=== PATIENT | male | born 1995 | race Caucasian/White ===

== ENCOUNTER 2017-02-24 03:42 | Emergency (ER) | payer OTHER ==
[2017-02-24 04:22] LABS: COLOR PALE YELLOW; LEUKOCYTE ESTERASE,URINE NEGATIVE (NEGATIVE); NITRITE,URINE NEGATIVE (NEGATIVE)
--- NOTE | 2017-02-24 04:27 | EDPHY ---
H & P Stated Complaint: right flank pain Time Seen by Provider: 02/24/17 04:12 HPI/ROS: Chief Complaint: Back pain HPI: 21-year-old male with a significant past medical history woke yesterday morning with pain in his right back radiating to his right groin. Patient states the pain was there for about an hour rate he has some nausea associated with. He had some intermittent pain the course of the day. He went to bed last night and awoke again this morning with severe 9/10 pain is right flank again radiating to his right groin. He could not find self a comfortable position in fact felt best when he is up walking around. Pain is now subsided down to about a 1/10. Has not noticed any blood in urine. Urgency or frequency. No fevers or chills. No central abdominal pain. No nausea or vomiting. He was taking ibuprofen yesterday with minimal relief. ROS: 10 point Review of Systems is negative except as noted in the HPI. PMH: None Social History: No smoking, no alcohol, daily marijuana Family History: non-contributory Physical Exam: Gen: Awake, Alert, No Distress HEENT: Nose: no rhinorrhea Eyes: PERRLA, EOMI Mouth: Moist mucosa Neck: Supple, no JVD Chest: nontender, lungs clear to auscultation Heart: S1, S2 normal, no murmur Abd: Soft, non-tender, no guarding Back: no CVA tenderness, no midline tenderness Ext: no edema, non-tender Skin: no rash Neuro: CN II-XII intact, Sensation grossly intact, Strength 5/5 in bilateral upper and lower extremities - Personal History Current Tetanus Diphtheria and Acellular Pertussis (TDAP): Yes - Medical/Surgical History Hx Asthma: No Hx Chronic Respiratory Disease: No Hx Diabetes: No Hx Cardiac Disease: No Hx Renal Disease: No Hx Cirrhosis: No Hx Alcoholism: No Hx HIV/AIDS: No Hx Splenectomy or Spleen Trauma: No - Social History Smoking Status: Never smoked Constitutional: Initial Vital Signs Temperature (C) 36.4 C 02/24/17 03:47 Heart Rate 74 02/24/17 03:47 Respiratory Rate 20 02/24/17 03:47 Blood Pressure 140/77 H 02/24/17 03:47 O2 Sat (%) 96 02/24/17 03:47 O2 Delivery Mode Room Air Allergies/Adverse Reactions: No Known Allergies Allergy (Unverified 02/24/17 03:47) Home Medications: Medication Instructions Recorded NK [No Known Home Meds] 02/24/17 Medical Decision Making ED Course/Re-evaluation: Urinalysis shows hematuria without pyuria. Patient's pain has improved without any treatment here. I suspect he has already passed a stone. We discussed the advantages and disadvantages of imaging specially CT scan at this time. I feel that given the fact that his pain is resolved without treatment days likely passed stone. He would like to avoid the radiation of a CT scan is not going to change anything and I think that this is appropriate. Will discharge him continue with ibuprofen. Will send with a urine strainer. Follow up with primary care physician for certainly can return if the symptoms worsen. - Data Points Laboratory Results: 02/24/17 04:01 Urine Color PALE YELLOW Urine Appearance CLEAR Urine pH 5.0 (5.0-7.5) Ur Specific [place] 1.005 (1.002-1.030) Urine Protein NEGATIVE (NEGATIVE) Urine Ketones NEGATIVE (NEGATIVE) Urine Blood 3+ H (NEGATIVE) Urine Nitrate NEGATIVE (NEGATIVE) Urine Bilirubin NEGATIVE (NEGATIVE) Urine Urobilinogen NEGATIVE EU EU (0.2-1.0) Ur Leukocyte Esterase NEGATIVE (NEGATIVE) Urine RBC 1-3 /hpf /hpf (0-3) Urine WBC 1-3 /hpf /hpf (0-3) Ur Epithelial Cells Not Reported Urine Bacteria 1+ /hpf H /hpf (NONE SEEN) Urine Mucus TRACE /lpf /lpf (NONE-1+) Urine Glucose NEGATIVE (NEGATIVE) Departure - Departure Disposition: Home, Routine, Self-Care Clinical Impression: Renal colic on right side Condition: Good Instructions: Renal Colic (ED), How to Strain Your Urine (ED) Additional Instructions: Take ibuprofen 600 mg 3 times a day. You may also take acetaminophen 1000 mg every 6 hr. Strain your urine and collect any stones that you past and taken to primary care physician. Return to the emergency department for increasing pain, nausea, vomiting, fevers , chills, or any other concerns. Referrals: Alen Delong MD [[facility] [place] Primary Care Provider] - As per Instructions
[2017-02-24 04:35] LABS: BACTERIA 1+ /hpf (NONE SEEN); MUCUS TRACE /lpf (NONE-1+)
[2017-02-24 05:19] VITALS: BP 130/86; PULSE 86; RESP 16; TEMP 97.7; O2SAT 97
== END 2017-02-24 05:18 | disposition home or self-care (01) ==
DX: N23 Unspecified renal colic (principal)

== ENCOUNTER 2018-09-04 10:20 | Emergency (ER) | payer MEDICAID, OTHER | END 2018-09-04 11:25 | disposition home or self-care (01) ==